=== PATIENT | male | born 1965 | race Two or more races ===

== ENCOUNTER 2025-04-26 07:21 | Emergency (ER) | payer MEDICAID, SELFPAY ==
[2025-04-26 07:46] VITALS: BP 144/87; PULSE 99; RESP 17; TEMP 36.7; O2SAT 95
[2025-04-26 07:47] VITALS: BMI 28.8
--- NOTE | 2025-04-26 07:49 | XR_ITS ---
Examination: CT brain head without contrast. 2-D sagittal coronal reconstructions Date and time of exam: 04/26/2025 at 8:08 a.m. CTDI: vol (mGy): 51.3 DLP: (mGycm): 1074 Technique: Multiple CT axial sections of the brain have been obtained, 5 mm slice thickness. Contrast has not been administered. 2-D sagittal, coronal reconstructions have been obtained Low dose protocols were performed. One or more of the following dose reduction techniques were used; automated exposure control, adjustment of the mA and/or KV according to patient size, use of iterative reconstruction technique. CLINICAL HISTORY: Generalized head pain and dizziness today Findings: On bone windows, there are 2 mucosal polyps in the right maxillary sinus, largest measures 1.4 cm the left maxillary sinus is 80% opacified. Other paranasal sinuses and mastoids are clear. I do not see any abnormalities in the upper airways or subcranial region. In the brain, there is possible very minimal dilatation of the extra-axial space over the frontal lobe convexities, and there is very mild but definite dilatation of the lateral ventricles. No other abnormalities are seen in the keita or white matter above or below the tentorium. The calvarium is intact. IMPRESSION: 1. There are findings in the paranasal sinuses consistent with paranasal sinusitis. 2. There is minimal but definite dilatation of the ventricular system, and borderline increased dilatation of the extra-axial space over the frontal lobe convexities these findings could be suggestive of possible, but not definite, very minimal atrophy in these regions. 3 no acute abnormalities are seen
--- NOTE | 2025-04-26 07:50 | EDNOTE_ITS ---
<Statement entered by Ivory Crabtree MD - 05/06/25 06:46> As co-signing physician, I was present and available for consult prn. I concur with the plan and care as documented by the midlevel provider. ED Headache RME/HPI General Chief Complaint: Headache Stated Complaint: HEADACHE X 3 DAYS, 8/10 Time Seen by Provider: 04/26/25 07:24 Source: patient Arrival date/time: 04/26/25 07:21 59-year-old male with no known medical history presents to the emergency room with a chief complaint of 8 out of 10 headache x 3 days Mode of arrival: ambulatory Limitations: no limitations Related Data Previous Rx's ?Medication ?Instructions ?Recorded acetaminophen 500 mg capsule 1,000 mg (2 x 500 mg) PO TID #30 10/08/21 caps ibuprofen 600 mg tablet 600 mg PO Q8H PRN fever or p ain 08/21/22 #30 tabs acetaminophen-caffeine 500 mg-65 1 tab PO Q8H PRN pain #30 tabs 04/26/25 mg tablet (Excedrin Tension Headache) amoxicillin 875 mg-potassium 1 tab PO BID 7 days #14 t abs 04/26/25 clavulanate 125 mg tablet Allergies Allergy/AdvReac Type Severity Reaction Status Date / Time No Known Allergies Allergy Verified 04/26/25 07:25 Review of Systems Review of Systems Systems Reviewed: All systems reviewed, normal except as documented Constitutional Constitutional: Reports system reviewed and no additional complaints, except as documented, Denies fatigue, Denies fever(s), Reports headache(s) and Reports weakness Eyes Eyes: Reports system reviewed and no additional complaints, except as documented, Denies blurry vision and Denies change in vision ENT Ears, Nose, Mouth, and Throat: Reports system reviewed and no additional complaints, except as documented, Denies otalgia, Reports headache(s), Denies nasal congestion, Denies throat swelling and Denies vertigo Cardiovascular Cardiovascular: Reports system reviewed and no additional complaints, except as documented, Denies chest pain, Denies dyspnea and Denies dyspnea on exertion Respiratory Respiratory: Reports system reviewed and no additional complaints, except as documented, Denies chest congestion, Denies cough, Denies dyspnea, Denies dyspnea on exertion and Denies wheezing Gastrointestinal Gastrointestinal: Reports system reviewed and no additional complaints, except as documented, Denies abdominal pain, Denies cramping, Denies nausea and Denies vomiting Genitourinary Genitourinary: Reports system reviewed and no additional complaints, except as documented, Denies dysuria and Denies hematuria Musculoskeletal Musculoskeletal: Reports system reviewed and no additional complaints, except as documented and Denies back pain Integumentary/Breasts Skin/Breast: Reports system reviewed and no additional complaints, except as documented and Denies wounds Neurologic Neurologic: Reports system reviewed and no additional complaints, except as documented, Denies confusion, Reports headache(s), Denies lack of coordination, Denies vertigo and Reports weakness Psychiatric Psychiatric: Reports system reviewed and no additional complaints, except as documented, Denies anxiety, Denies confusion, Denies depression, Denies paranoia, Denies suicidal ideation and Denies tactile hallucinations Endocrine Endocrine: Reports system reviewed and no additional complaints, except as documented and Denies fatigue Hematologic/Lymphatic Hematologic/Lymphatic: Reports system reviewed and no additional complaints, except as documented and Denies lymphadenopathy Allergic/Immunologic Allergic/Immunologic: Reports system reviewed and no additional complaints, except as documented, Denies throat swelling, Denies urticaria and Denies wheezing Past Medical History Past Medical History CARDIAC: Negative Congestive Heart Failure RESPIRATORY: Negative Chronic Obstructive Pulmonary Disease (COPD) GENITOURINARY: Negative Renal Disease ENDOCRINE: Negative Diabetes Mellitus Type 1 or Diabetes Mellitus Type 2 Social History SMOKING STATUS: Never smoker ED Exam General Limitations: Present no limitations General appearance: Present alert and in no apparent distress Head Head exam: Present atraumatic, normocephalic and normal inspection Eye Eye exam: Present normal appearance, PERRL and EOMI ENT ENT exam: Present normal exam, normal oropharynx and mucous membranes moist Neck Neck exam: Present normal inspection, full ROM and trachea midline Chest Chest inspection: Present normal inspection and symmetric chest wall rise Respiratory Respiratory exam: Present normal lung sounds bilaterally Cardiovascular Cardiovascular exam: Present regular rate, normal rhythm and normal heart sounds Abdominal Exam Abdominal exam: Present soft and normal bowel sounds Extremities Exam Extremities exam: Present normal inspection and full ROM Back Exam Back exam: Present normal inspection and full ROM Neurological Exam Neurological exam: Present alert, oriented X3, CN II-XII intact, normal gait and reflexes normal Expanded Neurological Exam Patient oriented to: Present person, place and time Speech: Present fluid speech Cranial nerves: Normal: EOM function (II, III, IV, ) and facial sensation (V) Cerebellar function: Present normal gait Motor strength - LUE: 5/5 Motor strength - RUE: 5/5 Motor strength - LLE: 5/5 Motor strength - RLE: 5/5 Coma scale eye opening: spontaneous Coma scale motor response: obeys commands Coma scale verbal response: oriented Coma scale total: 15 Psychiatric Psychiatric exam: Present normal affect and normal mood Skin Skin exam: Present warm, dry, intact and normal color Course Quality Measures none Orders Category Date Time Status CT head/brain wo con Stat Exams 04/26/25 07:49 Completed CBC Stat Lab 04/26/25 07:57 Completed CMP [Comprehensive Metabolic Panel] Stat Lab 04/26/25 07:57 Completed CRP [C-Reactive Protein] Stat Lab 04/26/25 07:57 Completed ESR [Sed Rate (ESR)] Stat Lab 04/26/25 07:57 Completed Ketorolac Inj [Toradol Inj] Med 04/26/25 08:28 Discontinued 30 mg IM X1 ONE Vital Signs Vital signs: Vital Signs Temperature 98.0 F 04/26/25 07:46 Pulse Rate 99 04/26/25 07:46 Respiratory Rate 17 04/26/25 07:46 Blood Pressure 144/87 H 04/26/25 07:46 Pulse Oximetry (%) 95 04/26/25 07:46 Oxygen Delivery Method Room Air 04/26/25 07:46 Headache MDM Narrative MDM Narrative:: 59-year-old male with no known medical history presents to the emergency room with a chief complaint of 8 out of 10 headache x 3 days Patient is hemodynamically stable and in no apparent distress Physical examination shows a normal neurological examination. The patient is a GCS 15 alert and oriented x 3 pupils are PERRLA EOMs are intact the patient has no neurological or focal deficits. The patient has a normal steady gait. Patient states he would like to get a CT scan of his head. A CT of his head and brain was ordered and was negative for any acute findings CBC CMP were all within normal limits Patient was discharged and educated to follow-up with primary care provider in the next 24 to 48 hours and return to the emergency room for any evidence of worsening signs or symptoms Patient data External records reviewed:: [facility] previous records Clinical information provided by:: patient Social determinants that could affect healthcare access:: none Patient has the following chronic illnesses:: No chronic illness How is presenting disease/condition affected by chronic disease/condition?: no chronic disease Evaluation data The following diagnostics were reviewed and interpreted by me:: lab results and radiology exam(s) Lab and/or radiology exams considered but not ordered:: Labs and radiology exams considered in order Interpretation Summary: CT head and brain-Findings: On bone windows, there are 2 mucosal polyps in the right maxillary sinus, largest measures 1.4 cm the left maxillary sinus is 80% opacified. Other paranasal sinuses and mastoids are clear. I do not see any abnormalities in the upper airways or subcranial region. In the brain, there is possible very minimal dilatation of the extra-axial space over the frontal lobe convexities, and there is very mild but definite dilatation of the lateral ventricles. No other abnormalities are seen in the keita or white matter above or below the tentorium. The calvarium is intact. IMPRESSION: 1. There are findings in the paranasal sinuses consistent with paranasal sinusitis. 2. There is minimal but definite dilatation of the ventricular system, and borderline increased dilatation of the extra-axial space over the frontal lobe convexities these findings could be suggestive of possible, but not definite, very minimal atrophy in these regions. 3 no acute abnormalities are seen Medications / Prescriptions Medications or Prescriptions considered but not ordered:: No medication given Medication administrations:: Medication Administration History Discontinued Medications Ketorolac Tromethamine (Ketorolac Inj 60 Mg/2 Ml Vial) 30 mg IM X1 ONE Stop: 04/26/25 08:29 No medication given Consultations Consultation(s) initiated? (list below): No Diagnosis Differential diagnosis headache: migraine, tension headache, subarachnoid hemorrhage and headache Most likely diagnosis given after review of the tests above:: Headache Admission Indicated Admission indicated?: not indicated Admission Request Was there a request for admission?: No Disposition Plan Disposition Plan: Discharge Discharge Attestation Discharge Attestation: The patient and all family members were given an opportunity to ask questions and understood the discharge instructions. Discharge instructions specifically effects, indications for sooner follow up or return to the emergency department, and the expected course of current diagnosis. Patient condition: Stable Discharge Plan Plan Patient Disposition: HOME (Self Care) Discharge Disposition comment: Stable Prescriptions/Referrals Prescriptions/Med Rec: New Excedrin Tension Headache 500-65 mg tablet 1 tab PO Q8H PRN (Reason: pain) Qty: 30 0RF amoxicillin-pot clavulanate 875-125 mg tablet 1 tab PO BID 7 Days Qty: 14 0RF No Action acetaminophen 500 mg capsule 1,000 mg PO TID Qty: 30 0RF ibuprofen 600 mg tablet 600 mg PO Q8H PRN (Reason: fever or pain) Qty: 30 0RF Problem List Clinical Impression: Headache, Sinusitis Patient/Caregiver Discharge Instructions Education Materials: ED Sinusitis (Antibiotic Treatment) Additional Instructions: Por favor, comun?quese con hatch m?dico de cabecera en las pr?ximas 24 a 48 horas. La tomograf?a computarizada de hatch anisa y cerebro no mostr? hallazgos agudos, bill s? sinusitis. Se enviaron antibi?ticos a hatch farmacia; por favor, rec?jalos y t?melos seg?n las indicaciones. Si presenta cualquier signo o s?ntoma de empeoramiento, regrese a la jennyfer de emergencias de inmediato. Print Language: [place] Stand Alone Forms: Monica Award Info., Work/School Release, Patient Portal Info Letter PA/RAILROAD WATCHMAN Supervising Physician PA/RAILROAD WATCHMAN Supervising Physician: Dr. Brown
[2025-04-26 08:10] LABS: Basophils # (Auto) 0.1 Thou/mm3 (0.0-0.2); Basophils % (Auto) 1 % (0-2.5); Eosinophils # (Auto) 0.0 Thou/mm3 (0.0-0.5); Eosinophils % (Auto) 0 % (0-10); Hematocrit 41.8 % (41.0-53.0); Hemoglobin 14.6 g/dL (13.5-16.0); Immature Granulocytes Auto 0.03 Thou/mm3 (0.00-0.00); Lymphocytes # (Auto) 0.7 Thou/mm3 (1.0-4.8); Lymphocytes % (Auto) 10 % (10-50); Mean Corpuscular HGB Conc 34.9 g/dl (31.0-37.0); Mean Corpuscular Hemoglobin 32.0 pg (25.0-35.0); Mean Corpuscular Volume 92 fL (80-100); Monocytes # (Auto) 0.4 Thou/mm3 (0.0-0.8); Monocytes % (Auto) 6 % (0-12); Neutrophils # (Auto) 5.7 Thou/mm3 (1.8-7.7); Neutrophils % (Auto) 82 % (37-80); Nucleated Red Blood Cell # 0.00 Thou/mm3 (0.00-0.00); Nucleated Red Blood Cell % 0 /100 WBC (0); Platelet Count 215 Thou/mm3 (140-440); RDW Standard Deviation 40.0 fL (35.1-43.9); Red Blood Count 4.56 Miln/mm3 (4.50-5.90); White Blood Count 6.9 Thou/mm3 (3.8-10.6)
[2025-04-26 08:20] LABS: Sed Rate (ESR) < 1 mm/hr (0-20)
[2025-04-26 08:38] LABS: Alanine Aminotransferase 95 U/L (10-49); Albumin, Serum 4.1 gm/dL (3.5-5.0); Albumin/Globulin Ratio 1.4 (1.2-2.2); Alkaline Phosphatase 91 U/L (46-116); Anion Gap 12 (7-16); Aspartate Amino Transferase 166 U/L (0-34); BUN/Creatinine Ratio 11 Ratio (12-20); Bilirubin,Total 1.0 mg/dL (0.3-1.2); Blood Urea Nitrogen 9 mg/dL (9-23); C-Reactive Protein < 0.5 mg/dL (0.0-0.9); Calcium 8.9 mg/dL (8.3-10.6); Calcium (Corrected) 8.9 mg/dL (8.5-10.1); Carbon Dioxide 25.9 mMol/L (20.0-31.0); Chloride 104 mMol/L (98-107); Creatinine (Component) 0.8 mg/dL (0.6-1.3); Estimated Creatinine Clearance 107.5 mL/min (>60); Globulin 3.0 gm/dL (2.3-3.5); Glucose 133 mg/dL (74-106); Osmolality,Calculated 283 (275-295); Potassium 3.1 mMol/L (3.4-5.1); Sodium 142 mMol/L (136-145); Total Protein 7.1 gm/dL (5.7-8.2); eGFR > 60 See Note
[2025-04-26] MEDS: KETOROLAC INJ 60 MG/2 ML VIAL 30 MG IM (09:04)
== END 2025-04-26 09:32 | disposition home or self-care (01) ==
LOC: SERX 08:47
PROVIDERS: Emergency Provider Nurse Practitioner Family; PCP Physician Assistant
DX: J32.9 Chronic sinusitis, unspecified (principal)
CPT/HCPCS: 36415; 70450; 80053; 85025; 85652; 86140; 96372; 99283; J1885